=== PATIENT | female | born 1930 | race Caucasian/White ===

== ENCOUNTER 2016-09-17 12:47 | Emergency (ER) | payer MEDICARE ==
[~2016-09-17 12:47] MED LIST: AKWA TEARS15 ML OPH; AMITIZA24 PO; AMITIZA8 MCG PO; ASA5GR PO; ASAB PO; ASABAYER PO; ASAEC PO; ATV.5 PO; BISAC-EVAC RC; BISR PR; BIST PO; CALCARB PO; CALTRA600D PO; CALTRAT600 PO; CIP5 PO; CYMBALTA20 PO; CYMBALTA30 PO; DRISDOL50000 UNT PO; DUONEB INH; DURA100 TOP; DURA25 TOP; DURA50 TOP; DURA75 TOP; EFFEX75 PO; EMLA TOP; ENDOCET1 TA1 PO; ENDOCET1 TA3 PO; FLECTOR1.3 % TOP; FLONASE NAS; FLORASTOR250 MG PO; FLOVENT220 INH; FLUTICASONE50 MCG; FOLIC PO; GABITRIL 4 MG TA4 MG OR; GABITRIL 4 MG TA4 MG PO; GABITRIL4 MG OR; GABITRIL4 MG PO; HALF81 PO; IRON325 MG PO; K-TABS10 MEQ PO; KEPPRA1000 MG PO; KEPPRA250 PO; KEPPRA500 PO; KEPPRA750 MG PO; KLONO5 PO; KLOR-CON 1010 MEQ PO; KLOR-CON M1010 MEQ PO; L20 PO; L40 PO; LEVOTHYROXIN100 MCG PO; LIDODERM T; LOP25 PO; LOP50 PO; LORTAB10 PO; LOVENOX40 SC; MAG OXIDE 400MG PO; MAGOX4 PO; METHOC500B PO; MI ACID; MIRALAXPKT PO; MIRAPEX1 MG PO; MIRAPEX5 PO; MOMUD PO; MYLUD PO; NEBULIZER INH; NEOPORACIN TOP; OS500+D PO; OXYCOD PO; PCET PO; PERCOCET1 TA2 PO; PERCOCET1 TA4 PO; PREV30 PO; PREVACID SOLUTAB PO; PRILO PO; PROAIR HFA INH; PROAIRRESP INH; PROVHFA INH; ROXICODONE15 MG PO; RYTHMOL225 MG PO; SENTAB PO; SEROQUEL1C PO; SEROQUEL50 MG PO; SYN1 PO; VITD PO; VITE1000 PO; ZOSYN4.5 IV; [UNRECOGNIZED DRUG - OTHER] EX; [UNRECOGNIZED DRUG - OTHER] IV; [UNRECOGNIZED DRUG - OTHER] PO
[2016-12-11] MEDS ORDERED: LINZESS 145 M145 MCG PO (05:47)
[2016-12-11] MEDS ORDERED: NUCYNTA50 MG PO (05:48)
[2016-12-11] MEDS ORDERED: LIDOCAINE 2% GEL TOP (15:26)
[2016-12-11] MEDS ORDERED: ALBUTEROL0.083 % INH (15:32)
[2016-12-11] MEDS ORDERED: REFRESH OPH (15:34)
== END 2016-09-17 15:05 | disposition home or self-care (01) ==
LOC: ER 12:47
PROC: 0HQLXZZ Repair Left Lower Leg Skin, External Approach (ICD-10-PCS; principal; 2016-09-17)
DX: S81.812A Laceration without foreign body, left lower leg, initial encounter (principal); I10 Essential (primary) hypertension; Z88.8 Allergy status to other drugs, medicaments and biological substances; Z79.899 Other long term (current) drug therapy; Z79.82 Long term (current) use of aspirin; W45.8XXA Other foreign body or object entering through skin, initial encounter
CPT/HCPCS: 99282